=== PATIENT | male | born 1980 | race Two or more races ===

== ENCOUNTER 2021-12-24 02:34 | Emergency (ER) | payer SELFPAY ==
[2021-12-24] MEDS ORDERED: Ibuprofen 600 MG Tab PO ONE (02:44)
== END 2021-12-24 04:03 | disposition home or self-care (01) ==
LOC: MW.ED 02:34
DX: S09.90XA Unspecified injury of head, initial encounter (principal); Y04.2XXA Assault by strike against or bumped into by another person, initial encounter
CPT/HCPCS: 70450; 72125; 99284; A9270